=== PATIENT | male | born 1985 | race Caucasian/White ===

== ENCOUNTER 2016-10-23 14:13 | Outpatient (CLI) | payer BC, OTHER | END 2016-10-23 14:14 | disposition home or self-care (01) | DX: G47.30 Sleep apnea, unspecified (principal); G47.8 Other sleep disorders; G47.10 Hypersomnia, unspecified; R06.83 Snoring ==

== ENCOUNTER 2016-11-25 19:30 | Outpatient (CLI) | payer BC | END 2016-11-25 19:31 | disposition home or self-care (01) | DX: G47.33 Obstructive sleep apnea (adult) (pediatric) (principal); Z68.39 Body mass index [BMI] 39.0-39.9, adult ==

== ENCOUNTER 2016-12-25 15:27 | Outpatient (CLI) | payer BC | END 2016-12-25 15:28 | disposition home or self-care (01) | DX: G47.33 Obstructive sleep apnea (adult) (pediatric) (principal) ==

== ENCOUNTER 2017-01-04 22:04 | Outpatient (CLI) | payer BC | END 2017-01-04 22:05 | disposition home or self-care (01) | DX: G47.33 Obstructive sleep apnea (adult) (pediatric) (principal); Z68.39 Body mass index [BMI] 39.0-39.9, adult ==

== ENCOUNTER 2017-01-29 15:45 | Outpatient (CLI) | payer BC | END 2017-01-29 15:46 | disposition home or self-care (01) | DX: G47.33 Obstructive sleep apnea (adult) (pediatric) (principal) ==

== ENCOUNTER 2017-03-19 15:45 | Outpatient (CLI) | payer BC | END 2017-03-19 15:46 | disposition home or self-care (01) | LOC: SC 15:45 | PROVIDERS: ATTEND Nurse Practitioner Family | DX: G47.33 Obstructive sleep apnea (adult) (pediatric) (principal) | CPT/HCPCS: 99212; 99214 ==

== ENCOUNTER 2017-04-30 15:53 | Outpatient (CLI) | payer BC | END 2017-04-30 15:54 | disposition home or self-care (01) | LOC: SC 15:53 | PROVIDERS: ATTEND Nurse Practitioner Family | DX: G47.33 Obstructive sleep apnea (adult) (pediatric) (principal) | CPT/HCPCS: 99212; 99214 ==